=== PATIENT | male | born 1990 | race African-American/Black ===

== ENCOUNTER 2023-08-08 05:53 | Emergency (ER) | payer MEDICAID ==
[~2023-08-08] VITALS: Ht 188 cm; Wt 82.0 kg
[2023-08-08 05:57] VITALS: O2SAT 95
[2023-08-08 07:29] LABS: EOSINOPHILS % 12.7 % (0.0-5.0); HEMATOCRIT. 40.6 % (42.0-52.0); LYMPHOCYTES % 38.5 % (20.0-50.0); MEAN CORPUSCULAR HEMOGLOBIN 29.2 pg (28.0-32.0); MEAN CORPUSCULAR VOLUME 91.1 fL (80.0-94.0); MEAN PLATELET VOLUME 8.4 fl (7.4-10.4); MONOCYTES % 14.1 % (2.0-8.0); NEUTROPHILS % 33.7 % (40.0-76.0); PLATELET 228 x1000/uL (130-400); RED BLOOD CELL COUNT 4.46 mill/uL (4.7-6.1); RED CELL DISTRIBUTION WIDTH 14.5 % (11.6-14.6); WHITE BLOOD COUNT 5.1 x1000/uL (4.5-11.0)
[2023-08-08 07:33] LABS: CARBON DIOXIDE 34 mEq/L (21-32); CHLORIDE 104 mEq/L (98-107); POTASSIUM 3.9 mEq/L (3.5-5.1); SODIUM 140 mEq/L (136-145)
[2023-08-08 07:39] LABS: CREATININE 1.1 mg/dL (0.6-1.3); GLUCOSE 75 mg/dL (70-105); UREA NITROGEN BLOOD 11 mg/dL (9-23)
[2023-08-08 07:42] LABS: ETHANOL BLOOD < 10 mg/dL (<10)
[2023-08-08 07:43] LABS: THYROID STIMULATING HORMONE 2.98 uIU/mL (0.55-4.78)
[2023-08-08 09:39] LABS: CLARITY URINE CLEAR (CLEAR); COLOR URINE YELLOW (YELLOW); GLUCOSE URINE NEGATIVE (NEGATIVE); KETONES URINE NEGATIVE (NEGATIVE); LEUKOCYTE ESTERASE URINE NEGATIVE (NEGATIVE); NITRITE URINE NEGATIVE (NEGATIVE); OCCULT BLOOD URINE NEGATIVE (NEGATIVE); PROTEIN URINE NEGATIVE (NEGATIVE); SPECIFIC GRAVITY URINE 1.009 (1.005-1.030); UROBILINOGEN URINE 0.2 E.U./dL (0.2-1.0)
[2023-08-08 09:52] LABS: *AMPHETAMINES SCREEN URINE NEGATIVE (NEGATIVE); *BARBITURATES SCREEN URINE NEGATIVE (NEGATIVE); *BENZODIAZEPINES SCREEN URINE NEGATIVE (NEGATIVE); *COCAINE SCREEN URINE NEGATIVE (NEGATIVE); CANNABINOID URINE SCREEN NEGATIVE (NEGATIVE); ECSTASY MDMA SCREEN URINE NEGATIVE (NEGATIVE); METHADONE URINE SCREEN NEGATIVE (NEGATIVE); OPIATES URINE SCREEN NEGATIVE (NEGATIVE); PHENCYCLIDINE URINE SCREEN NEGATIVE (NEGATIVE)
[2023-08-08] MEDS: OLANZAPINE 5MG TABLET ODT PO SCH (14:00)
[2023-08-08 19:27] VITALS: BP 107/71; PULSE 70; RESP 14; TEMP 98.2
== END 2023-08-08 19:57 | disposition admitted as inpatient to this hospital (09) ==
LOC: ER 05:53
DX: R45.851 Suicidal ideations (principal); H40.9 Unspecified glaucoma; Z20.822 Contact with and (suspected) exposure to COVID-19
CPT/HCPCS: 36415; 80048; 80305; 80320; 81003; 84443; 85025; 87426; 99285; G0480

== ENCOUNTER 2024-01-26 15:10 | Emergency (ER) | payer MEDICAID ==
[~2024-01-26] VITALS: Ht 182.9 cm; Wt 75.0 kg
[2024-01-26 15:25] VITALS: BP 123/72; PULSE 72; RESP 18; TEMP 98.5; O2SAT 100
[2024-01-26] MEDS ORDERED: DOXY100T28 MT (17:02)
[2024-01-26] MEDS: CEFTRIAXONE SODIUM 500MG VIAL IM ONE (17:20)
[2024-01-26] MEDS: DOXYCYCLINE HYCLATE 100MG CAPSULE PO ONE (17:20)
== END 2024-01-26 17:23 | disposition home or self-care (01) ==
LOC: ER 15:10
DX: A64 Unspecified sexually transmitted disease (principal); R30.0 Dysuria; H40.9 Unspecified glaucoma
CPT/HCPCS: 99283; 96372; J0696

== ENCOUNTER 2024-02-23 20:04 | Emergency (ER) | payer MEDICAID ==
[~2024-02-23] VITALS: Ht 188 cm; Wt 80.2 kg
[~2024-02-23 20:04] MED LIST: DOXY100T28 MT
[2024-02-23 20:20] VITALS: TEMP 98.2; O2SAT 98
[2024-02-23 22:38] LABS: CLARITY URINE CLEAR (CLEAR); COLOR URINE YELLOW (YELLOW); GLUCOSE URINE NEGATIVE (NEGATIVE); KETONES URINE NEGATIVE (NEGATIVE); LEUKOCYTE ESTERASE URINE NEGATIVE (NEGATIVE); NITRITE URINE NEGATIVE (NEGATIVE); OCCULT BLOOD URINE NEGATIVE (NEGATIVE); PH URINE 7.5 (4.5-8.0); PROTEIN URINE NEGATIVE (NEGATIVE); SPECIFIC GRAVITY URINE 1.023 (1.005-1.030)
[2024-02-23 23:31] VITALS: BP 133/71; PULSE 69; RESP 17; O2SAT 97
== END 2024-02-23 23:33 | disposition home or self-care (01) ==
LOC: ER 20:04
DX: R36.9 Urethral discharge, unspecified (principal); Z76.0 Encounter for issue of repeat prescription
CPT/HCPCS: 81003; 99283